=== PATIENT | male | born 1965 | race Caucasian/White ===

== ENCOUNTER 2016-05-07 15:53 | Emergency (ER) | payer OTHER ==
[~2016-05-07] VITALS: Ht 180.3 cm; Wt 102.0 kg
[~2016-05-07 15:53] MED LIST: BENZ100 PO; IBUP800T23 PO; LEVO175T2 PO; MORP60TA20 PO; ROXI30TA14 PO; SOMA350T PO; SUDA120T3 PO; ZITH250T PO
[2016-05-07 15:56] VITALS: BP 136/87; PULSE 84; RESP 20; TEMP 98.1; O2SAT 97
== END 2016-05-07 18:05 | disposition left against medical advice (07) ==
LOC: NETRI 15:53
DX: M25.569 Pain in unspecified knee (principal)
CPT/HCPCS: 99281

== ENCOUNTER 2017-11-16 06:25 | Inpatient (IN) ==
[2017-11-16] MEDS ORDERED: Aluminum/Magnesium/Simethacone Susp 30 ML UDC PO PRN (11:09)
[2017-11-16] MEDS ORDERED: Bisacodyl 10 MG Supp RECTAL PRN (11:09)
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
[2017-11-16] MEDS: Senna/Docusate Sodium 8.6/50 MG Tablet PO SCH (20:15)
[2017-11-16] MEDS: Acetaminophen 325 MG Tablet PO PRN (20:15)
[2017-11-16] MEDS: Divalproex 500 MG DR Tablet PO SCH (20:17)
[2017-11-16 21:48] LABS: Calcium 8.6 mg/dL (8.5-10.1); Carbon Dioxide 27.9 meq/L (21.0-32.0); Potassium 4.5 meq/L (3.5-5.1)
[2017-11-16] MEDS ORDERED: Ibuprofen 600 MG Tablet PO SCH (22:00)
[2017-11-17] MEDS: Levothyroxine 150 MCG Tablet PO SCH (06:06)
[2017-11-17] MEDS: Senna/Docusate Sodium 8.6/50 MG Tablet PO SCH ×2 (08:22→21:20)
[2017-11-17] MEDS: Divalproex 500 MG DR Tablet PO SCH ×2 (08:24→21:21)
[2017-11-17] MEDS: Acetaminophen 325 MG Tablet PO PRN ×3 (09:30→19:42)
[2017-11-17 09:55] LABS: Chol/HDL Ratio 2.21 Ratio; HDL Cholesterol 91.7 mg/dL (40.0-60.0)
[2017-11-17 13:19] LABS: Hemoglobin A1c 5.8 % (4.3-6.0)
--- NOTE | 2017-11-17 19:12 | P.PNPSY ---
Subjective Remarks: Reviewed electronic medical records and discussed case with staff. Follow-up was conducted in the hallway with nurse present. Patient reports that he sleeping well and eating well. He states that his mood is good. He continues to be medication seeking and requesting pain meds and "medication with my sinuses". His speech is still somewhat rapid however he is easily redirectable. Mental Status Examination Appearance: Appropriate Consciousness: Alert Orientation: Person, Place, Date/Time Motor Activity: Abnormal gait Speech: Pressured Language: Adequate Fund of Knowledge: Inadequate Attention and Concentration: Easily distracted Memory: Unremarkable Mood: Anxious Affect: Labile Thought Process & Associations: Disorganized (at times), Tangential Thought Content: Delusional Hallucination Type: None Delusion Type: Paranoid Suicidal Ideation: No Suicidal Plan: No Suicidal Intention: No Homicidal Ideation: No Homicidal Plan: No Homicidal Intention: No Insight: Poor Judgment: Poor Assessment and Plan - Assessment (1) Bipolar disorder Code(s): F31.9 - Bipolar disorder, unspecified Status: Acute - Plan Plan: Patient will be reevaluated Sunday by the attending psychiatrist. Continue with current treatment plan. Justification for Continued Inpatient Stay: Moving this patient to a less restrictive environment would likely result in decompensation.
[2017-11-17] MEDS ORDERED: Ibuprofen 600 MG Tablet PO PRN (20:55)
[2017-11-18] MEDS: Acetaminophen 325 MG Tablet PO PRN ×3 (03:28→18:48)
[2017-11-18] MEDS: Levothyroxine 150 MCG Tablet PO SCH (06:26)
[2017-11-18] MEDS: Senna/Docusate Sodium 8.6/50 MG Tablet PO SCH ×2 (08:45→21:24)
[2017-11-18] MEDS: Divalproex 500 MG DR Tablet PO SCH ×2 (08:47→21:27)
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
[2017-11-18] MEDS: Ibuprofen 600 MG Tablet PO PRN ×2 (15:10→21:23)
[2017-11-19] MEDS: Ibuprofen 600 MG Tablet PO PRN ×3 (06:18→20:27)
[2017-11-19] MEDS: Levothyroxine 150 MCG Tablet PO SCH (06:18)
[2017-11-19] MEDS: Senna/Docusate Sodium 8.6/50 MG Tablet PO SCH ×2 (08:31→20:27)
[2017-11-19] MEDS: Divalproex 500 MG DR Tablet PO SCH (08:31)
[2017-11-19] MEDS: Acetaminophen 325 MG Tablet PO PRN ×3 (08:31→18:45)
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
--- NOTE | 2017-11-19 17:55 | P.CON ---
History of Present Illness Service: [facility] Consult date: 11/19/17 Requesting Physician: Isauro Foreman Reason for Consult: Inguinal hernia Primary Care Provider: UNKNOWN Family Provider: UNKNOWN Chief Complaint: Right groin pain, allergies History of Present Illness: Mr. Gentile is a pleasant 52-year-old white male who presented to [place] on 11/16/2017 under a [employer] act. Patient with significant past medical history of tobacco abuse, bipolar disease, marijuana use, arthritis, right inguinal hernia , seasonal allergies. Patient has history of recent psychiatric admission, this time he came back again after he took 5 pills to help him relax. He denied suicidal ideation. He is having problems with his . He is under voluntary admission at this time. Patient has history of inguinal hernia that he has had for a year, occasionally it pops but he is able to reduce. He is complaining of pain. Indicates that he is supposed to follow-up as outpatient for a possible surgery. Also endorses seasonal allergies, would like some Claritin and Flonase. Denies any fever, no chills. No chest pain, no shortness of breath. Has been eating well. No nausea, no vomiting, no diarrhea. Has been voiding well. Patient recently stepped on a nail, has a well-healed scar to the left plantar aspect of the foot. Had a tetanus shot. Pt. is wearing shoes and socks. Patient was recently admitted, however admission is under a different medical record number and unable to locate. Hospitalist services are requested for medical management. Review of Systems All other systems reviewed negative except as stated in HPI [facility] - History History Provided By: Patient, Medical Record - Medical History Medical History: Medical History (Last Updated 11/19/17 @ 17:54 by LOLY Bermeo) Arthritis Environmental allergies Inguinal hernia Marijuana abuse Tobacco abuse - Surgical History Surgical History: Surgical History (Last Updated 11/19/17 @ 17:54 by LOLY Bermeo) Hx of right knee surgery - Family History Family History: Family History (Last Updated 11/19/17 @ 17:55 by LOLY Bermeo) Other Family history non-contributory - Tobacco History Second Hand Smoke Exposure: Yes Tobacco Use In Past 30 Days: Yes Smoking Status: Current every day smoker Tobacco Type: Cigarettes - Alcohol History How Often Do You Have a Drink Containing Alcohol: Never - Substance Use History Substance History: Active Abuse - Substance Use Type Marijuana Status: Active Route Used: Inhalation Last Used: 11/15/17 Reason for Use: Calm Down - Travel History Recent Travel in the [place] Within the Last 8 Weeks: No Recent Travel Out of the Country Within the Last 8 Weeks: No Medications and Allergies Active Medications: Active Medications Acetaminophen (Tylenol) 650 mg PO Q4H PRN PRN Reason: Pain 1-5 or Temp >101F Last Admin: 11/19/17 14:42 Dose: 650 mg Al Hydrox/Mg Hydrox/Simethicone (Mag-Al Plus Susp Liq) 30 ml PO Q6H PRN PRN Reason: DYSPEPSIA Al Hydroxide/Mg Hydroxide (Milk Of Magnesia Liq) 30 ml PO Q12H PRN PRN Reason: Mild Constipation Aripiprazole (Abilify) 10 mg PO HS [facility] Bisacodyl (Dulcolax Supp) 10 mg RECTAL DAILY PRN PRN Reason: SEVERE CONSITIPATION Fluticasone Propionate (Flonase Nasal [place]) 2 spray NASAL DAILY [facility] Hydroxyzine HCl (Atarax) 25 mg PO Q6H PRN PRN Reason: ANXIETY Last Admin: 11/19/17 15:41 Dose: 25 mg Ibuprofen (Motrin) 600 mg PO Q6H PRN PRN Reason: Acute Pain Last Admin: 11/19/17 13:12 Dose: 600 mg Lactulose (Lactulose Liq) 30 ml PO DAILY PRN PRN Reason: SEVERE CONSITIPATION Levothyroxine Sodium (Synthroid) 150 mcg PO DAILY@0600 [facility] Last Admin: 11/19/17 06:18 Dose: 150 mcg Levothyroxine Sodium (Synthroid) 25 mcg PO DAILY@0600 [facility] Last Admin: 11/19/17 06:18 Dose: 25 mcg Loratadine (Claritin) 10 mg PO DAILY [facility] Melatonin (Melatonin) 5 mg PO HS PRN PRN Reason: INSOMNIA Nicotine (Habitrol 21 Mg Patch.24 Hr) 1 patch T-DERMAL DAILY [facility] Last Admin: 11/19/17 08:31 Dose: 1 patch Patch Removal (Remove Old Patch) 1 each T-DERMAL HS [facility] Last Admin: 11/18/17 21:28 Dose: 1 each Senna/Docusate Sodium (Anahy-Colace) 1 tab PO BID [facility] Last Admin: 11/19/17 08:31 Dose: 1 tab Sennosides (Senokot) 17.2 mg PO Q12H PRN PRN Reason: Moderate Constipation Tramadol HCl (Ultram) 25 mg PO Q8H PRN PRN Reason: PAIN SCALE 4 TO 6 MODERATE Allergies Allergy/AdvReac Type Severity Reaction Status Date / Time No Known Allergies Allergy Uncoded 05/07/16 17:05 Home Medications Medication Instructions Recorded Confirmed Type ibuprofen See Label Instructions .ROUTE 11/16/17 11/16/17 History .COMPLEX PRN levothyroxine 175 mcg PO DAILY 11/16/17 11/16/17 History risperidone 2 mg PO BID 11/16/17 11/16/17 History tramadol See Label Instructions .ROUTE 11/16/17 11/16/17 History .COMPLEX PRN Physical Exam Vital signs: Vital Signs 11/18/17 19:17 11/18/17 22:23 11/19/17 06:00 Temperature 97.5 F L Pulse Rate 54 L Respiratory Rate 16 16 17 Blood Pressure 122/67 Pulse Oximetry 99 11/19/17 07:12 11/19/17 17:49 Temperature 98.8 F Pulse Rate 83 Respiratory Rate 16 18 Blood Pressure 129/63 Pulse Oximetry 99 Intake & Output 11/18/17 11/19/17 11/19/17 18:59 06:59 18:59 Weight 82.3 kg Narrative: GENERAL: Well-nourished, well-developed patient in no apparent distress. SKIN: Warm and dry. HEAD: Atraumatic. Normocephalic. EYES: Pupils equal and round. No scleral icterus. No injection or drainage. ENT: No nasal bleeding or discharge. Mucous membranes pink and moist. NECK: Trachea midline. No JVD. CARDIOVASCULAR: Regular rate and rhythm. RESPIRATORY: No accessory muscle use. Clear to auscultation. Breath sounds equal bilaterally. GASTROINTESTINAL: Abdomen soft, non-tender, nondistended. Hepatic and splenic margins not palpable. : Soft small bulge noted to right inguinal canal, easily reducible. Nontender. MUSCULOSKELETAL: Extremities without clubbing, cyanosis, or edema. No obvious deformities. NEUROLOGICAL: Awake and alert. No obvious cranial nerve deficits. Motor grossly within normal limits. Five out of 5 muscle strength in the arms and legs. Normal speech. PSYCHIATRIC: Appropriate mood and affect; insight and judgment normal. Assessment and Plan - Plan 52-year-old male with history of bipolar disease, with recent psychiatric admission. Presented with suicidal ideation. Has history of right inguinal hernia, supposed to be having surgery. Complaining of pain, denies any urinary symptoms. Also complains of seasonal allergies. No recent fever, no chills. Right inguinal hernia, easily reducible. Occasionally has pain. Continue with Tylenol as needed. -If pain is moderate, can use tramadol 25 mg p.o. every 8. -Is to follow-up as outpatient for surgical evaluation Seasonal allergies Continue with Claritin Flonase 2 puffs daily Tobacco abuse, Counseling done, indicates that he is going to quit -Continue nicotine patch Hypothyroid Continue Synthroid TSH 0.028 Free T4 pending Plan of care discussed with patient and RN. Thank you for this consultation We will sign off for now, reconsult if needed Code Status: Full code Discussed Condition With: RN, patient Discharge Planning: Per psych team
[2017-11-19] MEDS: Melatonin 5 MG Tablet PO PRN (20:29)
[2017-11-19] MEDS ORDERED: ARIPiprazole 10 MG Tablet PO SCH (21:00)
[2017-11-20] MEDS: Levothyroxine 150 MCG Tablet PO SCH (06:05)
[2017-11-20] MEDS: Loratadine 10 MG Tablet PO SCH (08:16)
[2017-11-20] MEDS: Ibuprofen 600 MG Tablet PO PRN ×2 (08:16→16:04)
[2017-11-20] MEDS: Senna/Docusate Sodium 8.6/50 MG Tablet PO SCH ×2 (08:16→20:29)
[2017-11-20] MEDS: Acetaminophen 325 MG Tablet PO PRN (12:02)
--- NOTE | 2017-11-20 14:49 | ECG ---
Date Performed: 11/19/2017 Time Performed: 18:26:45 PTAGE: 52 years EKG: Sinus rhythm NORMAL ECG NO PREVIOUS TRACING DOCTOR: Roney King Interpretating Date/Time 11/20/2017 14:44:48
[2017-11-20] MEDS ORDERED: ARIPiprazole 10 MG Tablet PO ONE (16:20)
--- NOTE | 2017-11-20 17:29 | P.PNPSY ---
Subjective Remarks: Reviewed electronic medical records and discussed case with staff. Follow-up was conducted in the hallway with NJ Martinez present. His nurse reports that he has been at the window of the nurses station all day long requesting an increase in his pain medication as well as having his medication switched from bedtime dose to a.m. dose. He also is requesting to be discharged, file a grievance, and be made voluntary so he can leave. I spoke with Concha de la cruz NP who agreed to my increasing his dosage of tramadol to 50 mg as the patient makes much to do about taking half of a tablet. Additionally, I switched his Abilify from the evening to the morning with a one-time dose now. Patient continues to press for more accommodations asking to be discharged, stating that he needs to have his hernia operated on right now, requesting grievance form. He will be provided with a grievance form. Mental Status Examination Appearance: Appropriate Consciousness: Alert Orientation: Person, Place (At least) Motor Activity: Normal gait Speech: Rapid Language: Other (Rambling) Fund of Knowledge: Inadequate Attention and Concentration: Easily distracted Memory: Unremarkable Mood: Anxious Affect: Other (expansive) Thought Process & Associations: Loose associations Thought Content: Racing thoughts Hallucination Type: None Delusion Type: None Suicidal Ideation: No Suicidal Plan: No Suicidal Intention: No Homicidal Ideation: No Homicidal Plan: No Homicidal Intention: No Insight: Fair (at best) Judgment: Impulsive Assessment and Plan - Assessment (1) Bipolar disorder Code(s): F31.9 - Bipolar disorder, unspecified Status: Acute - Plan Plan: Patient will be reevaluated by the attending psychiatrist. Continue with current treatment plan. I have removed his nighttime dose of Abilify to the morning and increased his pain medication. He continues to be manic, intrusive , and needy. Justification for Continued Inpatient Stay: Moving this patient to a less restrictive environment would likely result in decompensation. Request Healthcare Surrogate/Guardian Advocate?: No (1) Bipolar disorder Qualifiers: Active/Remission status: currently active Current bipolar episode type: manic Current episode severity: severe Psychotic features: without psychotic features Qualified Code(s): F31.13 - Bipolar disorder, current episode manic without psychotic features, severe
[2017-11-20] MEDS: Melatonin 5 MG Tablet PO PRN (20:36)
[2017-11-21] MEDS: Ibuprofen 600 MG Tablet PO PRN ×4 (02:45→21:04)
[2017-11-21] MEDS: Levothyroxine 150 MCG Tablet PO SCH (05:55)
[2017-11-21] MEDS: Senna/Docusate Sodium 8.6/50 MG Tablet PO SCH ×2 (08:55→20:58)
[2017-11-21] MEDS: Loratadine 10 MG Tablet PO SCH (08:59)
[2017-11-21] MEDS: ARIPiprazole 10 MG Tablet PO SCH (09:07)
--- NOTE | 2017-11-21 11:42 | P.PN ---
Subjective Interval history: Reconsult on patient with right inguinal hernia. Patient seen and examined. Patient says he is now having significant pain in the right groin secondary to worsening hernia. He says it is too painful to reduce. He is having difficulty walking secondary to the pain in his right groin. He denies any nausea or vomiting. He denies any fever or chills. He says he was supposed to have surgery on the hernia on May 06 but had to postpone to procedure due to dealing with a messy divorce. Physical Exam Vital signs: Vital Signs 11/20/17 17:31 11/20/17 18:51 11/21/17 02:45 Temperature 99.0 F 98.9 F Pulse Rate 75 68 Respiratory Rate 21 17 17 Blood Pressure 144/75 H 131/64 Pulse Oximetry 96 100 11/21/17 03:45 Temperature Pulse Rate Respiratory Rate 17 Blood Pressure Pulse Oximetry Narrative: GENERAL: Well-nourished, well-developed patient in no apparent distress. Awake and alert. Noted to be ambulating with a slight limp. SKIN: Warm and dry. HEAD: Atraumatic. Normocephalic. EYES: Pupils equal and round. No scleral icterus. No injection or drainage. ENT: No nasal bleeding or discharge. Mucous membranes pink and moist. NECK: Trachea midline. CARDIOVASCULAR: Regular rate and rhythm. RESPIRATORY: No accessory muscle use. Clear to auscultation. Breath sounds equal bilaterally. GASTROINTESTINAL: Abdomen soft, non-tender, nondistended. +BS. : Soft small tender bulge noted to right inguinal canal, unable to attempt to reduce due to patient guarding. MUSCULOSKELETAL: Extremities without clubbing, cyanosis, or edema. +deformity left knee. NEUROLOGICAL: Awake and alert. No obvious cranial nerve deficits. Motor grossly within normal limits. Able to move all extremities spontaneously. Normal speech. PSYCHIATRIC: Appropriate mood and affect; calm and cooperative. Results - Labs CBC & Chem 7: 11/16/17 21:13 Assessment and Plan - Plan 52-year-old male with history of bipolar disease, with recent psychiatric admission. Presented with suicidal ideation. Has history of right inguinal hernia, supposed to be having surgery. Complaining of pain, denies any urinary symptoms. Also complains of seasonal allergies. No recent fever, no chills. Right inguinal hernia, worsening with pain and difficulty with ambulation patient states overnight he began experiencing increased pain and difficulty reducing hernia -Continue with tramadol as needed -Consult GS, very much appreciate assistance Seasonal allergies -Continue with Claritin -Flonase 2 puffs daily Tobacco abuse -Counseling done, indicates that he is going to quit -Continue nicotine patch Hypothyroidism TSH 0.028. free T4 1.43 Continue Synthroid DVT prophylaxis -patient is ambulatory Code Status: Full Discussed Condition With: patient, nursing staff
--- NOTE | 2017-11-21 17:24 | MB ---
cc: Nehemias Clark MD DATE: 11/21/2017 CHIEF COMPLAINT: Right inguinal hernia. PERSONAL CARE ATTENDANT: Renata Chiang. REASON FOR CONSULTATION: Right inguinal hernia. HISTORY OF PRESENT ILLNESS: The patient is a 52-year-old male who was recently admitted for psychiatry and suicidal ideation. The patient noted to have an overdose due to depression and tumultuous relationship. The patient noted to be complaining of right groin pain that he states the pain had been going on for approximately a year and a half and continued to get worse. He notes hernia present in the right groin area and notes this has been reducible. He denies any evidence of incarceration or any signs of obstruction with nausea or vomiting. He has had a normal bowel movement as well. He does state his pain is pretty significant at 8/10, currently 6/10. Medications help improve his pain. He has never been hospitalized for this and again states otherwise doing relatively well. PAST MEDICAL HISTORY: Suicidal ideation and hypothyroidism. PAST SURGICAL HISTORY: Left knee surgery. SOCIAL HISTORY: Positive for smoking, positive THC. Denies IVDA. ALLERGIES: NO KNOWN DRUG ALLERGIES. MEDICATIONS: See electronic medical record. FAMILY HISTORY: Denies diabetes or hypertension. REVIEW OF SYSTEMS: GENERAL: Denies fever or chills. HEENT: Denies eye pain, ear pain. NECK: Denies swelling or pain. LUNGS: Denies cough or wheeze. HEART: Denies palpitations or chest pain. ABDOMEN: Complains of right groin pain. Denies nausea or vomiting. GENITOURINARY: There is right groin pain. ENDOCRINE: Hypothyroidism. Denies polyuria, polydipsia. PSYCHIATRIC: Suicidal ideation. Denies change in sensorium. PHYSICAL EXAMINATION: GENERAL: The patient is in no acute distress. VITAL SIGNS: On admission, temperature 98.1, blood pressure 128, pulse 68, respirations 17, saturation 100%. HEENT: Pupils equal, round, reactive. NECK: Supple. Trachea midline. LUNGS: Clear to auscultation, bilateral expansion. HEART: S1, S2 regular. ABDOMEN: Soft. Right groin positive for palpable inguinal hernia, reducible. No erythema. Tenderness to palpation. EXTREMITIES: Warm and well perfused. Left lower extremity knee deformity, right thigh area with a palpable medial saphenous vein. NEUROLOGIC: GCS of 15, 5/5 motor in all extremities. PSYCHIATRIC: Suicidal ideation and appropriate mood. LABORATORY AND DIAGNOSTIC DATA: WBC on 11/16/2017 is not recorded. Sodium 137, potassium 4.5, chloride 102, BUN 15, creatinine 0.9. ASSESSMENT: The patient is a 52-year-old male with right inguinal hernia, reducible. PLAN: After full clinical workup, the patient with above-named issues. At this point, the patient does have right groin pain and presence of right inguinal hernia. This hernia is freely reducible. I do not feel any signs of strangulation or incarceration. He is somewhat tender on exam. I discussed the chronicity of this disease and discussed with the patient that he could warrant repair of hernia; however, I would favor doing this in an outpatient setting and wait for the patient to resolve all psychiatric issues in this hospitalization. The patient will follow up with my surgical clinic or follow up with his surgeon for repair in the future. Discussed in detail with the patient. States understanding and agrees. MD DARREN Wilson/stephanie/jacoby , 03:40 PM , 03:51 PM
--- NOTE | 2017-11-21 20:36 | P.PNPSY ---
Subjective Remarks: Patient seen for follow-up, chart reviewed. Discussion with nursing staff reported that patient reverted back to monitor with noted to be crying yesterday. Patient was found sitting in the room noted B, cooperative. Patient states that he feels medications are working great, he plans on flying back to [place] but is unsure whether he will be allowed to stay in his ' s home for 1 day and if not plan to go to hotel in the interim. Patient states that his mood is "wonderful" stating that his modification of pain meds have made his sodium more tolerable and was seen by surgeon today who recommended outpatient follow-up. Review of Systems All other systems reviewed negative except as stated in HPI Mental Status Examination Appearance: Appropriate Consciousness: Alert Orientation: Person, Place (At least) Motor Activity: Normal gait Speech: Rapid Language: Other (Rambling) Fund of Knowledge: Inadequate Attention and Concentration: Easily distracted Memory: Unremarkable Mood: Anxious Affect: Appropriate Thought Process & Associations: Intact, Linear Thought Content: Preoccupations (With discharge) Hallucination Type: None Delusion Type: None Suicidal Ideation: No Suicidal Plan: No Suicidal Intention: No Homicidal Ideation: No Homicidal Plan: No Homicidal Intention: No Insight: Fair (at best) Judgment: Impulsive Assessment and Plan - Assessment (1) Bipolar disorder Code(s): F31.9 - Bipolar disorder, unspecified Status: Acute - Plan Plan: Patient this time noted to engage in conversation appropriately noted with less tangentiality and loosening associations able to maintain adequate focus on topic. Continue current treatment. We will continue to monitor mood and behavior. Discharge planning in progress. Justification for Continued Inpatient Stay: At risk of further decompensation at lower level care. Request Healthcare Surrogate/Guardian Advocate?: No (1) Bipolar disorder Qualifiers: Active/Remission status: currently active Current bipolar episode type: manic Current episode severity: severe Psychotic features: without psychotic features Qualified Code(s): F31.13 - Bipolar disorder, current episode manic without psychotic features, severe
[2017-11-21] MEDS: Melatonin 5 MG Tablet PO PRN (20:58)
[2017-11-22] MEDS: Levothyroxine 150 MCG Tablet PO SCH (05:29)
[2017-11-22 06:15] VITALS: BP 138/90; PULSE 62; RESP 16; TEMP 97.9; O2SAT 100
[2017-11-22] MEDS: Ibuprofen 600 MG Tablet PO PRN ×2 (06:23→12:17)
[2017-11-22] MEDS: Senna/Docusate Sodium 8.6/50 MG Tablet PO SCH (08:09)
[2017-11-22] MEDS: ARIPiprazole 10 MG Tablet PO SCH (08:09)
[2017-11-22] MEDS: Loratadine 10 MG Tablet PO SCH (08:09)
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
[2017-11-22] MEDS ORDERED: ABILIFY MAINTENA 400 MG IM ONE ×2 (13:57→15:30)
--- NOTE | 2017-11-22 14:20 | P.PN ---
Subjective Interval history: Reconsult on patient with right inguinal hernia. Patient seen and examined. Patient seen by Dr. Clark of general surgery who recommends outpatient follow- up for elective right inguinal hernia repair. Patient is in agreement. Patient states his pain is well controlled with tramadol. He denies any new medical complaints. He is requesting prescriptions for nicotine patch at discharge. He denies any fever chills. Denies any chest pain or shortness of breath. Physical Exam Vital signs: Vital Signs 11/21/17 16:45 11/22/17 06:14 Temperature 98.3 F 97.9 F Pulse Rate 70 62 Respiratory Rate 18 16 Blood Pressure 152/79 H 138/90 Pulse Oximetry 98 100 Intake & Output 11/21/17 11/22/17 11/22/17 18:59 06:59 18:59 Weight 77.5 kg Narrative: GENERAL: Well-nourished, well-developed patient in no apparent distress. Awake and alert. SKIN: Warm and dry. HEENT: Atraumatic. Normocephalic. Pupils equal and round. No scleral icterus. No injection or drainage. No nasal bleeding or discharge. Mucous membranes pink and moist. NECK: Trachea midline. CARDIOVASCULAR: Regular rate and rhythm. RESPIRATORY: No accessory muscle use. Clear to auscultation. Breath sounds equal bilaterally. GASTROINTESTINAL: Abdomen soft, non-tender, nondistended. +BS. MUSCULOSKELETAL: Extremities without clubbing, cyanosis, or edema. +deformity left knee. NEUROLOGICAL: Awake and alert. No obvious cranial nerve deficits. Motor grossly within normal limits. Able to move all extremities spontaneously. Normal speech. PSYCHIATRIC: Appropriate mood and affect; calm and cooperative. Results - Labs CBC & Chem 7: 11/16/17 21:13 Assessment and Plan - Plan 52-year-old male with history of bipolar disease, with recent psychiatric admission. Presented with suicidal ideation. Has history of right inguinal hernia, supposed to be having surgery. Complaining of pain, denies any urinary symptoms. Also complains of seasonal allergies. No recent fever, no chills. Right inguinal hernia, worsening with pain and difficulty with ambulation patient states overnight he began experiencing increased pain and difficulty reducing hernia -Continue with tramadol as needed. [employer] Prescription Drug Monitoring Database has been queried and verified prior to prescribing the controlled substance. Acute pain exception. This patient has normal, predicted, physiological, and time limited response to an adverse mechanical stimulus associated with surgery, trauma, or acute illness as described in my notes. There is a lack of alternative treatment options other than to include the prescribed narcotic treatment for this condition. -Seen in consultation by Dr. Clark of general surgery, appreciate assistance. Recommends follow-up as outpatient to schedule elective right inguinal hernia repair. Seasonal allergies -Continue with Claritin -Flonase 2 puffs daily Tobacco abuse -Counseling done, indicates that he is going to quit -Continue nicotine patch. Discharge prescriptions given Hypothyroidism TSH 0.028. free T4 1.43 Continue Synthroid DVT prophylaxis -patient is ambulatory Patient is stable from hospitalist standpoint. [facility] will sign off. Please reconsult if needed. Code Status: Full Discussed Condition With: patient, nursing staff
== END 2017-11-22 16:40 | disposition left against medical advice (07) ==
LOC: H270 09:07 → H260 14:45 → H270 11-20 19:41
PROVIDERS: ADMIT Psychiatry & Neurology Psychiatry; ATTEND Psychiatry & Neurology Psychiatry